=== PATIENT | male | born 2005 | race Caucasian/White ===

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

== ENCOUNTER → 2025-03-21 | Outpatient (CLI) | payer OTHER, SELFPAY ==
[2025-03-21 15:30] LABS: Absolute Lymphocyte Count 1.65 X10^3/uL (0.83-4.51); Absolute Neutrophil Count 5.7 X10^3/uL (2.0-7.7); Basophil# 0.06 X10^3/uL; Basophil% 0.7 % (0-1); Eosinophil# 0.15 X10^3/uL; Eosinophils% 1.8 % (0-5); Hematocrit 49.9 % (40-54); Hemoglobin 16.5 g/dL (13.0-16.5); Lymphocyte # 1.65 X10^3/ul (0.83-4.51); Lymphocyte % 19.8 % (19-41); Mean Corp Hgb Conc 33.1 g/dL (32-36); Mean Corpuscular Hgb 29.5 pg (27.0-32.0); Mean Corpuscular Volume 89.3 fL (80-94); Mean Platelet Vol. 10.6 fl (6.2-12.0); Monocyte# 0.77 X10^3/uL; Monocyte% 9.3 % (0-10); NRBC Flagged by Analyzer 0 % (0-5); Neutrophil # 5.65 X10^3/uL (2.7-7.7); Neutrophil % 67.9 % (47-70); Platelet Count 257 K/mm3 (150-450); RBC Distribution Width CV 12.7 % (11.6-14.6); RBC Distribution Width SD 41.4 fl (35.1-43.9); Red Blood Count 5.59 M/mm3 (4.6-6.2); White Blood Count 8.3 K/mm3 (4.4-11.0)
[2025-03-21 18:23] LABS: ALB/GLOB Ratio 1.9 RATIO (0.9-2.4); AST(SGOT) 17 U/L (<=37); Alanine Aminotransfer ALT/SGPT 10 U/L (<=46); Albumin, Serum 4.5 g/dL (3.5-5.0); Alkaline Phosphatase 63 U/L (40-129); Anion Gap 10 (5-15); BUN 14 mg/dL (4-19); BUN/Creat Ratio 11.5 RATIO (10-20); Calcium,Total 9.8 mg/dL (7.6-11.0); Carbon Dioxide 26.2 mmol/L (21.0-32.0); Chloride 106 mmol/L (98-108); Creatinine, Serum 1.19 mg/dL (0.70-1.20); EST Glomerular Filtration Rate 90 (>60); Globulin 2.3 g/dL (2.2-4.2); Glucose 59 mg/dL (70-99); Potassium 4.2 mmol/L (3.3-5.1); Protein, Total 6.8 g/dL (5.9-8.4); Sodium Level 143 mmol/L (133-145); Syphilis Antibodies Nonreactive (Nonreactive); Total Bilirubin 1.52 mg/dL (0.00-1.30)
== END | disposition home or self-care (01) ==
LOC: MFPLAB 11:35
PROVIDERS: PCP Family Medicine; Referring Provider Family Medicine; Visit Provider Family Medicine
DX: R21 Rash and other nonspecific skin eruption (principal)
CPT/HCPCS: 36415; 80053; 85025; 86780

== ENCOUNTER → 2025-03-26 | Outpatient (CLI) | payer OTHER, SELFPAY ==
[2025-03-26 12:47] LABS: AST(SGOT) 20 U/L (<=37); Alanine Aminotransfer ALT/SGPT 12 U/L (<=46); Albumin, Serum 4.7 g/dL (3.5-5.0); Alkaline Phosphatase 63 U/L (40-129); Bilirubin, Direct 0.32 mg/dL (0.00-0.30); Globulin 2.5 g/dL (2.2-4.2); Protein, Total 7.2 g/dL (5.9-8.4); Total Bilirubin 0.97 mg/dL (0.00-1.30)
== END | disposition home or self-care (01) ==
LOC: MFPLAB 10:58
PROVIDERS: PCP Family Medicine; Referring Provider Family Medicine; Visit Provider Family Medicine
DX: E80.6 Other disorders of bilirubin metabolism (principal)
CPT/HCPCS: 36415; 80076

== ENCOUNTER 2025-09-02 08:29 | Day surgery (SDC) | payer OTHER, SELFPAY ==
[2025-09-02] MEDS: Lactated Ringers 1,000 ML 15 ML IV (08:45)
--- NOTE | 2025-09-02 08:51 | PCM.PRE.AN2 ---
ASA Classification* ASA Classification ASA Classification: 2 Assessment & Plan Anesthesia* Anesthesia Assessment Anesthesia Assessment: Discussed sedation and/or anesthesia options, risks, benefits, and alternatives with patient/parents/legal guardian/POA. Questions invited. The patient/parents/legal guardian/POA seems to understand and agrees to proceed with anesthesia plan. Reviewed the physical assessment, medical history, allergy history and patient home medications list prior to surgery/procedure/anesthetic and documented any changes. Performed airway and anesthesia risk assessments. Anesthesia Type Anesthesia Type: General and Block Anesthesia Focused Assessment* Airway Assessment Mouth opens: >3 cm Mallampati Score: II Labs Anesthesia Preop lab: CBC WBC, (4.4-11.0) 8.3 K/mm3 03/21/25, 11:35 RBC, (4.6-6.2) 5.59 M/mm3 03/21/25, 11:35 Hgb, (13.0-16.5) 16.5 g/dL 03/21/25, 11:35 Hct, (40-54) 49.9 % 03/21/25, 11:35 Plt Count, (150-450) 257 K/mm3 03/21/25, 11:35 CHEMISTRY Potassium, (3.3-5.1) 4.2 mmol/L 03/21/25, 11:35 Sodium, (133-145) 143 mmol/L 03/21/25, 11:35 BUN, (4-19) 14 mg/dL 03/21/25, 11:35 Creatinine, (0.70-1.20) 1.19 mg/dL 03/21/25, 11:35 Glucose, (70-99) 59 mg/dL L 03/21/25, 11:35 COAG Pre-Assessment Diagnosis/Proposed Procedure Planned Operative Procedure(s): (L) LEFT KNEE ARTHROSCOPIC ANTERIOR CRUCIATE LIGAMENT RECONSTRUCTION WITH BONE PATELLAR BONE AUTOGRAFT, POSSIBLE MEDIAL MENISCUS REPAIR Anesthesia History Anesthesia History - forensic structural engineer: Anesthesia History - forensic structural engineer Hx Hospitalization No 08/05/25 10:26 Any Problems With Anesthesia No 08/05/25 10:26 Cholinesterase deficiency No 08/05/25 10:26 You/Your Family Experience No 08/05/25 10:26 fever (hyperthermia) with Relationship Recent Exposure to Contagious Disease Does patient have nerve No 08/05/25 10:26 stimulator Patient instructed to have device shut off --Does patient have Pacemaker or ICD? When Was Last Pacemaker Check QUESTION #4 FULL TEXT: You/Your Family Experience fever (hyperthermia) with Anesthesia Last Oral Intake Last Oral intake: Last Oral Intake NPO since Meds taken in AM with sips of water? Meds patient instructed to take am of surgery PONV PONV - forensic structural engineer: PONV - forensic structural engineer Female No 08/05/25 10:26 HX of Motion Sickness No 08/05/25 10:26 HX of N/V After Surgery No 08/05/25 10:26 Non-Smoker Yes 08/05/25 10:26 Duration of Surgery greater Yes 08/05/25 10:26 than 60 minutes Number of Risk Factors 2 08/05/25 10:26 PONV Score Moderate Risk 08/05/25 10:26 Height & Weight Height & Weight: Anesthesia: Height & Weight Height 6 ft 1 in 03/04/25 09:35 Respiratory Assessment Respiratory Assessment - forensic structural engineer: Respiratory Tract Infection Hx - forensic structural engineer Hx Respiratory Tract Infection No 08/05/25 10:26 STOP Sleep Apnea STOP Sleep Apnea - forensic structural engineer: STOP Sleep Apnea - forensic structural engineer Hx Hypertension No 08/05/25 10:26 Hx Sleep Apnea No 08/05/25 10:26 CPAP BIPAP Do you snore loudly (louder No 08/05/25 10:26 than talking or can be heard Do you often feel tired/ No 08/05/25 10:26 fatigued/ sleepy during daytime? Has anyone observed you stop No 08/05/25 10:26 breathing during sleep? STOP Results Negative 08/05/25 10:26 QUESTION #5 FULL TEXT : Do you snore loudly (louder than talking or can be heard through closed doors)? Tobacco Use History Tobacco Use History - forensic structural engineer: Tobacco Use History - forensic structural engineer Tobacco Use Smoking Status Never smoker 08/05/25 10:26 Hx Tobacco Use No 08/05/25 10:26 Years Smoking Packs Smoked per Day Smoking Cessation Date was within the last 15 years Hx Smoking Cessation Date Hx Smoking Cessation Counseling Hematologic Medial History Hematologic Hx - forensic structural engineer: Hematologic Medical Hx - elderly sitter Hx of Blood Transfusion No 08/05/25 10:26 Hx of Transfusion in last 3 No 10/06/25 10:26 Months Date of Last Transfusion (if within last 3 months) Ever experience any problems No 08/05/25 10:26 with transfusion(s)? Specify any problems Hx of Preganancy in last 3 N/A 08/05/25 10:26 Months Nurse Filling Out Transfusion NBUCHER 08/05/25 10:26 & Questions: Date: 08/05/25 08/05/25 10: Time: 08/05/25 10:26 Patient unable to answer at this time (ie. confused, unrespo /Reproduction History /Reproductive History - forensic structural engineer: /Reproductive Hx- forensic structural engineer Hx Now No 08/05/25 10:26 Gestational Age (in weeks): EDC: Hx Hx Para Hx Section SAB No 08/05/25 10:26 Active Medications Active Medications: Current Medications Generic Name Dose Route Start Last Admin Trade Name Freq PRN Reason Stop Dose Admin Lactated Ringer's 1,000 mls @ 15 mls/hr 09/02/25 08:45 IV .Q48H CAMERON PFSH Medical History Heartburn Non-smoker Tinea manuum Home Medications ?Medication ?Instructions ?Recorded ?Last Taken ?Type NK 08/05/25 Unknown History Allergy/AdvReac Type Severity Reaction Status Date / Time No Known Allergies Allergy Verified 08/05/25 10:25 Surgical History History of tonsillectomy and adenoidectomy History of lateral meniscus repair of right knee Hx of tear of meniscus of knee joint Social History Smoking Status: Never smoker alcohol intake: never Review of Systems (Anesthesia) ROS Narrative System reviewed and no additional complaints, except as documented.
[2025-09-02] MEDS: Midazolam 2 MG/2 ML Syringe IV (09:35)
[2025-09-02] MEDS: Epinephrine (1 mg/ml) 1 MG/ML VIAL (09:51)
[2025-09-02] MEDS: Lidocaine 1% (5 ml sdv) 5 ML Vial IV (10:20)
[2025-09-02] MEDS: Cefazolin 1 GM/5 ML Vial 2 GM IV (10:21)
[2025-09-02] MEDS: fentaNYL 100 MCG/2 ML Ampul 200 MCG IV (11:15)
[2025-09-02] MEDS: Ketorolac 30 MG/ML Syringe IV (12:04)
[2025-09-02 12:35] VITALS: BP 116/65; BP 131/64; PULSE 99; RESP 20; TEMP 36.2; O2SAT 98
[2025-09-02 12:40] VITALS: BP 116/65; BP 122/80; PULSE 93; RESP 12; O2SAT 97
--- NOTE | 2025-09-02 12:40 | POSTOP.ANE_ITS ---
Anesthesia: Postop Eval I
--- NOTE | 2025-09-02 12:40 | OP.PCM_ITS ---
Operative Report (Standard)
--- NOTE | 2025-09-02 12:40 | PCM.POST.ANE ---
Anesthesia: Postop Eval I Current Vital Signs Temperature: 97.9 F Pulse Rate: 104 Blood Pressure: 131/64 Respiratory Rate: 16 Pulse Ox: 100 Oxygen Delivery Method: Nasal Cannula Oxygen Flow Rate (L/min): 3 Assessment Airway patent: Yes Spontaneous unlabored respirations: Yes Mental status: Awake and Calm nausea: No Vomiting: No Anesthesia Complication: No Fluid Hydration Crystalloid volume administer (ml): 700 Total IV fluid infused: 700 Progress Note Anesthesia document: Postop Eval 1 completed: Yes
--- NOTE | 2025-09-02 12:40 | PCM.OPRPT ---
Operative Report (Standard) Operative Information Date of Procedure: 09/02/25 Pre-Operative Diagnosis: 1. Left knee anterior cruciate ligament tear 2. Left knee medial meniscus tear Post-Operative Diagnosis: 1. Left knee anterior cruciate ligament tear 2. Left knee incomplete healed medial meniscus posterior horn tear Surgery/Procedure Performed: Left knee arthroscopic anterior cruciate ligament reconstruction with bone patellar tendon bone autograft family welfare social work professor: Yes Digital Account Director: Serena Bertrand Tasks completed by student assistant: Opening & closing, Implanting device, Hemostasis: Electrocautery, Retracting and Other (Graft prep) Type of Anesthesia: General/Regional RN Documented Start/Stop Times: Operation Date: 09/02/25 10:00 Case Time Into Pre-Op 09/02/25 08:32 Anesthesia Start 09/02/25 10:15 Into Room 09/02/25 10:15 Procedure Start 09/02/25 10:39 Procedure End 09/02/25 12:18 Anesthesia End 09/02/25 12:29 Out of Room 09/02/25 12:29 Procedure Start Time: 10:39 Procedure Stop Time: 12:18 Select all DRAINS/GRAFTS/IMPLANTS that apply: Implanted device Implanted device details: Arthrex tight rope femoral sided suspensory fixation with 8 x 30 biocomposite interference screw Estimated Blood Loss: 50 cc Specimen collected: No Description of surgery: Patient was identified in preoperative holding area by name, medical record number, and date of . The operative extremity was marked. Informed consent confirmed with the patient. All questions were answered to patient satisfaction. Peripheral nerve blocks were then moved by anesthesia staff prior to the surgery. At time of his procedure, patient was brought to the operative suite and positioned supine on a standard operating table. All bony prominences were well-padded. General anesthesia was induced and laryngeal mask airway placed. After securing the tube, I placed a well-padded pneumatic tourniquet on the upper thigh of the operative extremity. I first examined the leg under anesthesia. There was a positive pivot shift and Tien. We then positioned the operative extremity in a circumferential arthroscopic leg castellanos. A well-leg castellanos was placed on the patient's nonoperative thigh. We then dropped the foot of the bed 90 degrees. We then prepped and draped the operative lower extremity in a normal, sterile orthopedic fashion. We performed a timeout with all parties in attendance in agreement with the side, site, operation to be performed. No concerns were voiced and we elected to proceed with surgery. 2 g Ancef was administered for antibiotic prophylaxis prior to the incision by the anesthesia staff. Right lower extremity was excited with Esmarch bandage and tourniquet inflated to 250 mmHg which remained up for approximately 75 minutes I commenced diagnostic and operative arthroscopy. I establish a standard anterolateral portal with an 15 blade scalpel. Blunt tipped trocar and cannula was inserted through this portal as the knee was brought into full extension into the patellofemoral joint. Trocar was removed and arthroscope introduced. Examination of the knee revealed pristine patellofemoral compartment. Medial and lateral gutters were unremarkable. Medial compartment was entered with a valgus stress. Anterior medial portal was established with assistance of a spinal needle and subsequent 15 blade scalpel. Medial compartment cartilage was pristine. Medial meniscus was intact. Superficial remnant of a likely incomplete tear was noted in the posterior horn which was stable to probing.. I then turned my attention to the intercondylar notch. At this time, arthroscopic instruments were removed and we elected to proceed with graft harvest after ACL rupture was confirmed on arthroscopic examination. A longitudinal incision was made from the inferior pole of the patella to the tibial tubercle in the midline of the knee. Full-thickness skin flaps were developed down to the level of the fascia. Fascia and peritenon was carefully elevated from the patellar tendon with a 15 blade scalpel. The middle third of the patellar tendon was then encountered. A 1 cm parallel blade was used to harvest the middle third of the patellar tendon. A microsagittal saw was then used to harvest the tibial and patellar bone plugs. 1 x 2 cm bone plugs were harvested in triangular fashion with combination of the microsagittal saw and completed with curved osteotomes. The graft was then freed from underlying fat pad and brought to the back table for graft preparation. My assistant corporate secretary, Mrs. Bertrand, prepared the graft on the back table for ACL reconstruction. The graft was prepared with a Arthrex tight rope button for the femoral sided fixation which we utilized the patellar side of the graft. This was repaired in standard fashion. Two #5 FiberWire sutures were placed through drill holes through the tibial bone block for screw fixation on the tibial side. Bone blocks were measured to be 9.5 mm for both tunnels after compressing the bone fragments with a rongeur. Graft was tensioned and wrapped with a moist sponge on the back table while we completed the arthroscopic portion of the case. The remnants of the ACL was then encountered. I resected remaining portion of the ACL with a radial resector, marking the footprints with the radiofrequency ablator. I then performed a notchplasty in standard fashion with a bur. I then introduced the flip cutter drill guide through the anterior lateral portal and the camera was moved to the anterior medial portal. I positioned the drill guide to allow for 2 mm of back wall at approximately the 1:30 position on the lateral wall of the notch. I made a stab incision along the lateral thigh in line with the planned trajectory of the flip cutter. Skin, subcutaneous tissue, and IT band were sharply incised and dilated. Drill guide and drill were then passed down to the level of the lateral femoral cortex. We drilled through the lateral cortex into the intercondylar notch at the planned trajectory location. The flip cutter was then deployed to a diameter of 9.5 mm. The flip cutter was then used to retrograde drill the femoral socket to a depth of 30 mm. Flip cutter was then retracted and pulled from the wound. A fiber stick was then introduced through the femoral socket. The fiber wire was then retrieved out the anterior lateral portal and luggage tagged. Loose pieces of bone was debrided with a radial resector from the knee. I then switched the camera to the lateral portal. I placed the tibial drill guide through the anterior medial portal planning be tunnel placement at the [place] footprint of the ACL. Tibial guide was introduced through our harvest incision to the anterior medial tibia with planned trajectory of the drill course. I then drilled through the anterior medial tibia into the joint at the planned trajectory. Appropriate pin position was confirmed and then the tibial tunnel was reamed with a barrel tester 9.5 mm diameter. We dilated the tibial tunnel to 10 mm with sequential dilators. Passing suture was then retrieved through the tibial tunnel. Passing suture was then used to pass the femoral side of the graft. The tight rope button was then deployed and engaged the lateral femoral cortex. We then sequentially tightened the graft to dock into the femoral tunnel. After bone block was completely seated in the femoral tunnel, a nitinol wire was passed anterior to the tibial side of the graft. The knee was cycled 25 times to prevent creep. A bio composite 30 mm by 8 mm tenodesis screw was then placed with excellent cortical chatter to fixate the tibial tunnel in 20 degrees of flexion while my assistant corporate secretary held a posterior drawer. We then retensioned the femoral side. The graft was probed and fixation and tension was excellent. Sutures were then cut. The knee was thoroughly debrided lavage of any loose pieces of bone. Final images were obtained. Tourniquet was then deflated. Hemostasis was excellent. Femoral tunnel was closed with 3-0 nylon suture. Peritenon was closed watertight with interrupted [id number] 0 Vicryl suture after patella and tibial tubercle harvest sites were packed with bone graft obtained from graft prep and tunnel reaming. Dermis was reapproximated with buried 3-0 Vicryl suture and skin finally reapproximated with a running subcuticular 4-0 Monocryl suture and skin glue and Steri-Strips. A sterile compression dressing was applied. Patient was placed in a T ROM brace locked in full extension. Patient tolerated procedure well without apparent complication. He was safely awoken the operative suite and extubated. He was transferred to his [facility] insufflated PACU in stable condition. Need for skilled assistant corporate secretary: Serena Bertrand PA-C was critical to the outcome of the case. During the course of the procedure she played a vital role. Mrs. Bertrand was pivotal in proceeding with surgical procedure during time of graft preparation allowing for less time under anesthesia, less tourniquet time, ultimately reducing risk for the patient. She also played a vital role in closure and brace application. Postoperative plan: Weightbearing as tolerated with hinged knee brace locked in full extension. Range of motion 0 to 130 degrees when nonweightbearing. Aspirin 81 mg twice daily for DVT prophylaxis starting postoperative day #1. Prescription for oxycodone provided. Prescription for Toradol provided. Scheduled Tylenol as well. Ice and elevation. Physical therapy to start tomorrow as previously scheduled. Follow-up in 2 weeks for suture removal. Surgical Findings: Remote ACL tear. Healed medial meniscus tear. Complications Complications: No Admit VTE Documentation VTE Present on Admission: No VTE Mechan Device Prophylaxis: SCD's and Thigh High ROCKY Hose VTE Pharm Prophylaxis ordered?: Yes
[2025-09-02 12:41] VITALS: BP 131/64; PULSE 104; RESP 16; TEMP 36.6; O2SAT 100
[2025-09-02 12:48] VITALS: BP 114/63; BP 116/65; PULSE 100; RESP 12; O2SAT 96
--- NOTE | 2025-09-02 12:55 | POSTOPAN2_ITS ---
Anesthesia Postop Eval I Sum
--- NOTE | 2025-09-02 12:55 | PCM.POSTANE2 ---
Anesthesia Postop Eval I Sum Postop Eval Completion status Anesthesia document: Postop Eval 1 completed: Yes Anesthesia Postop Eval I Summary Anesthesia Postop Eval I Summary: Anesthesia Postop Eval I: Assessment Summary Airway patent Yes 09/02/25 12:41 EQUIPMENT RECORDS SUPERVISOR.[email or web address] Spontaneous unlabored Yes 09/02/25 12:41 EQUIPMENT RECORDS SUPERVISOR.SHOF respirations Mental status Awake,Calm 09/02/25 12:41 EQUIPMENT RECORDS SUPERVISOR.SHOF nausea No 09/02/25 12:41 EQUIPMENT RECORDS SUPERVISOR.SHOF Vomiting No 09/02/25 12:41 EQUIPMENT RECORDS SUPERVISOR.SHOF Anesthesia Postop Eval I: Fluid Summary Crystalloid volume administer 700 09/02/25 12:41 EQUIPMENT RECORDS SUPERVISOR.SHOF (ml) Colloids volume administered ( ml) Blood Product volume administered (ml) Total IV fluid infused 700 09/02/25 12:41 EQUIPMENT RECORDS SUPERVISOR.SHOF Anesthesia Postop Eval I: Summary Notes Anesthesia Complication No 09/02/25 12:41 EQUIPMENT RECORDS SUPERVISOR.SHOF Anesthesia Complication Comment: Post-operative progress note Anesthesia: Postop Eval II Evaluation Mental status: Awake Pain Level: 2 nausea: No Vomiting: No
[2025-09-02 13:03] VITALS: BP 116/65; BP 136/69; PULSE 93; RESP 12; TEMP 36.9; O2SAT 98
[2025-09-02 14:17] VITALS: BP 116/65; BP 131/74; PULSE 88; RESP 16; TEMP 36.8; O2SAT 100
== END 2025-09-02 14:22 | disposition home or self-care (01) ==
LOC: SDC 08:32 → AC 08:34
PROVIDERS: PCP Family Medicine; Referring Provider Student in an Organized Health Care Education/Training Program; Visit Provider Student in an Organized Health Care Education/Training Program
PROC: (CPT 29888; principal; 2025-09-02 09:40)
DX: S83.512A Sprain of anterior cruciate ligament of left knee, initial encounter (principal); X58.XXXA Exposure to other specified factors, initial encounter; Y93.67 Activity, basketball
CPT/HCPCS: 29888; 01400; 64447; C1713; J2405